=== PATIENT | female | born 1965 | race African-American/Black ===

== ENCOUNTER 2016-11-04 11:02 | Emergency (ER) | payer MEDICAID ==
[2011-06-09 13:22] VITALS: BMI 46.7
== END 2016-11-04 13:56 | disposition home or self-care (01) ==
LOC: D.ER 11:02
DX: M54.5 Low back pain (principal); F41.9 Anxiety disorder, unspecified; I25.10 Atherosclerotic heart disease of native coronary artery without angina pectoris; F32.9 Major depressive disorder, single episode, unspecified

== ENCOUNTER 2016-11-10 17:31 | Emergency (ER) | payer MEDICAID ==
[2011-06-09 13:22] VITALS: BMI 46.7
== END 2016-11-10 19:50 | disposition left against medical advice (07) ==
LOC: D.ER 17:31
DX: R52 Pain, unspecified (principal)

== ENCOUNTER 2016-11-19 16:28 | Emergency (ER) | payer MEDICAID ==
[2011-06-09 13:22] VITALS: BMI 46.7
== END 2016-11-19 18:05 | disposition home or self-care (01) ==
LOC: D.ER 16:28
DX: M54.16 Radiculopathy, lumbar region (principal); H65.02 Acute serous otitis media, left ear; F41.9 Anxiety disorder, unspecified; I25.10 Atherosclerotic heart disease of native coronary artery without angina pectoris; F32.9 Major depressive disorder, single episode, unspecified

== ENCOUNTER 2016-12-10 20:11 | Emergency (ER) | payer MEDICAID ==
[2011-06-09 13:22] VITALS: BMI 46.7
== END 2016-12-10 21:45 | disposition home or self-care (01) ==
LOC: D.ER 20:11
DX: M54.2 Cervicalgia (principal); R51 Headache; M54.5 Low back pain; F41.9 Anxiety disorder, unspecified; I25.10 Atherosclerotic heart disease of native coronary artery without angina pectoris

== ENCOUNTER 2016-12-21 16:46 | Emergency (ER) | payer MEDICAID ==
[2011-06-09 13:22] VITALS: BMI 46.7
== END 2016-12-21 18:56 | disposition home or self-care (01) ==
LOC: D.ER 16:46
DX: M54.5 Low back pain (principal); F17.200 Nicotine dependence, unspecified, uncomplicated; F41.9 Anxiety disorder, unspecified; I25.10 Atherosclerotic heart disease of native coronary artery without angina pectoris; F32.9 Major depressive disorder, single episode, unspecified

== ENCOUNTER 2017-01-01 18:17 | Emergency (ER) | payer MEDICAID ==
[2011-06-09 13:22] VITALS: BMI 46.7
== END 2017-01-01 21:35 | disposition home or self-care (01) ==
LOC: D.ER 18:17
DX: G43.909 Migraine, unspecified, not intractable, without status migrainosus (principal); F41.9 Anxiety disorder, unspecified; I25.10 Atherosclerotic heart disease of native coronary artery without angina pectoris; F32.9 Major depressive disorder, single episode, unspecified

== ENCOUNTER 2017-01-03 23:01 | Emergency (ER) | payer MEDICAID ==
[2011-06-09 13:22] VITALS: BMI 46.7
== END 2017-01-04 00:45 | disposition home or self-care (01) ==
LOC: D.ER 23:01
DX: M25.562 Pain in left knee (principal); E11.9 Type 2 diabetes mellitus without complications; I10 Essential (primary) hypertension

== ENCOUNTER 2017-01-10 11:32 | Emergency (ER) | payer MEDICAID ==
[2011-06-09 13:22] VITALS: BMI 46.7
== END 2017-01-10 12:04 | disposition home or self-care (01) ==
LOC: D.ER 11:32
DX: S16.1XXA Strain of muscle, fascia and tendon at neck level, initial encounter (principal); X58.XXXA Exposure to other specified factors, initial encounter; Y93.89 Activity, other specified; Y92.89 Other specified places as the place of occurrence of the external cause; E11.9 Type 2 diabetes mellitus without complications; I10 Essential (primary) hypertension

== ENCOUNTER 2017-01-10 23:54 | Emergency (ER) | payer MEDICAID ==
[2011-06-09 13:22] VITALS: BMI 46.7
== END 2017-01-11 01:25 | disposition home or self-care (01) ==
LOC: D.ER 23:54
DX: G43.909 Migraine, unspecified, not intractable, without status migrainosus (principal); S29.012A Strain of muscle and tendon of back wall of thorax, initial encounter; X58.XXXA Exposure to other specified factors, initial encounter; Y93.89 Activity, other specified; Y92.89 Other specified places as the place of occurrence of the external cause; E11.9 Type 2 diabetes mellitus without complications; I10 Essential (primary) hypertension

== ENCOUNTER 2017-01-13 20:34 | Emergency (ER) | payer MEDICAID ==
[2011-06-09 13:22] VITALS: BMI 46.7
== END 2017-01-14 00:11 | disposition home or self-care (01) ==
LOC: D.ER 20:34
DX: R51 Headache (principal); M79.605 Pain in left leg; I10 Essential (primary) hypertension; E11.9 Type 2 diabetes mellitus without complications

== ENCOUNTER 2017-01-18 11:27 | Emergency (ER) | payer MEDICAID ==
[2011-06-09 13:22] VITALS: BMI 46.7
== END 2017-01-18 12:53 | disposition home or self-care (01) ==
LOC: D.ER 11:27
DX: M54.5 Low back pain (principal); W01.0XXA Fall on same level from slipping, tripping and stumbling without subsequent striking against object, initial encounter; Y93.6A Activity, physical games generally associated with school recess, summer camp and children; I10 Essential (primary) hypertension

== ENCOUNTER 2017-01-19 10:51 | Emergency (ER) | payer MEDICAID ==
[2011-06-09 13:22] VITALS: BMI 46.7
== END 2017-01-19 13:41 | disposition home or self-care (01) ==
LOC: D.ER 10:51
DX: M54.5 Low back pain (principal); W19.XXXA Unspecified fall, initial encounter; I10 Essential (primary) hypertension

== ENCOUNTER 2017-01-21 18:56 | Emergency (ER) | payer MEDICAID ==
[2011-06-09 13:22] VITALS: BMI 46.7
== END 2017-01-21 22:10 | disposition home or self-care (01) ==
LOC: D.ER 18:56
DX: M53.3 Sacrococcygeal disorders, not elsewhere classified (principal); I10 Essential (primary) hypertension

== ENCOUNTER 2017-01-28 14:05 | Emergency (ER) | payer MEDICAID ==
[2011-06-09 13:22] VITALS: BMI 46.7
== END 2017-01-28 16:21 | disposition home or self-care (01) ==
LOC: D.ER 14:05
DX: G43.909 Migraine, unspecified, not intractable, without status migrainosus (principal); I10 Essential (primary) hypertension; E11.9 Type 2 diabetes mellitus without complications

== ENCOUNTER 2017-01-30 17:06 | Emergency (ER) | payer MEDICAID ==
[2011-06-09 13:22] VITALS: BMI 46.7
[2017-01-30 18:15] LABS: BASOPHILS 0.1 % (0-2); EOSINOPHILS 1.8 % (0-7); HEMATOCRIT 34.8 % (36.0-48.0); HEMOGLOBIN 11.3 g/dL (12-16); IMMATURE GRANULOCYTES 0.1 % (0-5); LYMPHOCYTES 36.2 % (15-50); MCH 29.7 pg (26.0-34.0); MCHC 32.5 g/dL (31.0-37.0); MCV 91.3 fL (80.0-100.0); MEAN PLATELET VOLUME 10.6 fL (7.4-10.4); MONOCYTES 6.5 % (2-11); NEUTROPHILS 55.3 % (40-80); PLATELET COUNT 269 10x3/uL (130-400); RBC 3.81 10x6/uL (4.00-5.40); RDW 13.3 % (11.5-14.5); WBC 7.2 10x3/uL (4.8-10.8)
== END 2017-01-30 18:51 | disposition home or self-care (01) ==
LOC: D.ER 17:06
PROVIDERS: Nurse Practitioner Acute Care
DX: G89.18 Other acute postprocedural pain (principal); R11.10 Vomiting, unspecified; I10 Essential (primary) hypertension; E11.9 Type 2 diabetes mellitus without complications; R11.2 Nausea with vomiting, unspecified; R10.9 Unspecified abdominal pain; M54.9 Dorsalgia, unspecified; M54.2 Cervicalgia

== ENCOUNTER 2017-02-03 12:41 | Emergency (ER) | payer MEDICAID ==
[2011-06-09 13:22] VITALS: BMI 46.7
== END 2017-02-03 14:23 | disposition home or self-care (01) ==
LOC: D.ER 12:41
DX: M54.5 Low back pain (principal); I10 Essential (primary) hypertension; F17.200 Nicotine dependence, unspecified, uncomplicated

== ENCOUNTER 2017-02-10 11:10 | Emergency (ER) | payer MEDICAID ==
[2011-06-09 13:22] VITALS: BMI 46.7
== END 2017-02-10 12:30 | disposition left against medical advice (07) ==
LOC: D.ER 11:10
DX: R51 Headache (principal)

== ENCOUNTER 2017-02-11 14:37 | Emergency (ER) | payer MEDICAID ==
[2011-06-09 13:22] VITALS: BMI 46.7
== END 2017-02-11 15:55 | disposition home or self-care (01) ==
LOC: D.ER 14:37
DX: G43.909 Migraine, unspecified, not intractable, without status migrainosus (principal); E11.9 Type 2 diabetes mellitus without complications; I10 Essential (primary) hypertension

== ENCOUNTER 2017-02-22 21:04 | Emergency (ER) | payer MEDICAID ==
[2011-06-09 13:22] VITALS: BMI 46.7
== END 2017-02-22 23:16 | disposition home or self-care (01) ==
LOC: D.ER 21:04
DX: M54.16 Radiculopathy, lumbar region (principal); E11.9 Type 2 diabetes mellitus without complications; I10 Essential (primary) hypertension

== ENCOUNTER 2017-02-26 17:36 | Emergency (ER) | payer MEDICAID ==
[2011-06-09 13:22] VITALS: BMI 46.7
== END 2017-02-26 18:55 | disposition home or self-care (01) ==
LOC: D.ER 17:36
DX: G43.919 Migraine, unspecified, intractable, without status migrainosus (principal); I10 Essential (primary) hypertension; E11.9 Type 2 diabetes mellitus without complications; R11.0 Nausea; H53.149 Visual discomfort, unspecified

== ENCOUNTER 2017-03-08 12:31 | Emergency (ER) | payer MEDICAID ==
[2011-06-09 13:22] VITALS: BMI 46.7
== END 2017-03-08 14:45 | disposition home or self-care (01) ==
LOC: D.ER 12:31
DX: G43.909 Migraine, unspecified, not intractable, without status migrainosus (principal); I10 Essential (primary) hypertension; F17.200 Nicotine dependence, unspecified, uncomplicated

== ENCOUNTER 2017-03-14 18:02 | Emergency (ER) | payer MEDICAID ==
[2011-06-09 13:22] VITALS: BMI 46.7
[2017-03-14 20:57] LABS: APPEARANCE CLEAR (CLEAR); BILIRUBIN NEGATIVE (NEGATIVE); COLOR YELLOW (YELLOW); GLUCOSE NEGATIVE (NEGATIVE); KETONE NEGATIVE (NEGATIVE); LEUKOCYTE ESTERASE TRACE (NEGATIVE); NITRITE NEGATIVE (NEGATIVE); PROTEIN NEGATIVE (NEGATIVE); SPECIFIC GRAVITY 1.015 (1.005-1.020); UROBILINOGEN NORMAL (NORMAL)
[2017-03-14 20:59] LABS: BASOPHILS 0.2 % (0-2); EOSINOPHILS 1.8 % (0-7); HEMATOCRIT 35.7 % (36.0-48.0); HEMOGLOBIN 11.7 g/dL (12-16); IMMATURE GRANULOCYTES 0.1 % (0-5); LYMPHOCYTES 37.3 % (15-50); MCH 29.6 pg (26.0-34.0); MCHC 32.8 g/dL (31.0-37.0); MCV 90.4 fL (80.0-100.0); MEAN PLATELET VOLUME 10.2 fL (7.4-10.4); MONOCYTES 5.7 % (2-11); NEUTROPHILS 54.9 % (40-80); PLATELET COUNT 308 10x3/uL (130-400); RBC 3.95 10x6/uL (4.00-5.40); WBC 8.9 10x3/uL (4.8-10.8)
[2017-03-14 20:59] LABS: BACTERIA MODERATE /hpf (NONE SEEN); EPITHELIAL CELLS 0-5 /hpf (0-5); RED CELLS - URINE 0-5 /hpf (0-5); WHITE CELLS - URINE 0-5 /hpf (0-5)
[2017-03-14 21:27] LABS: ALBUMIN 3.9 g/dL (3.4-5.0); ANION GAP 13.1 mmol/L (8-16); BILIRUBIN - TOTAL 0.26 mg/dL (0.2-1.3); CARBON DIOXIDE 28.2 mmol/L (21.0-32.0); POTASSIUM - SERUM 3.3 mmol/L (3.5-5.1); PROTEIN - SERUM 7.5 g/dL (6.4-8.2)
== END 2017-03-14 22:08 | disposition home or self-care (01) ==
LOC: D.ER 18:02
PROVIDERS: Emergency Medicine
DX: R10.9 Unspecified abdominal pain (principal)

== ENCOUNTER 2017-04-03 13:25 | Emergency (ER) | payer MEDICAID ==
[2011-06-09 13:22] VITALS: BMI 46.7
== END 2017-04-03 15:35 | disposition left against medical advice (07) ==
LOC: D.ER 13:25
DX: M25.552 Pain in left hip (principal)

== ENCOUNTER 2017-04-04 13:55 | Emergency (ER) | payer MEDICAID ==
[2011-06-09 13:22] VITALS: BMI 46.7
[2017-04-04 15:58] LABS: APPEARANCE CLEAR (CLEAR); BILIRUBIN NEGATIVE (NEGATIVE); COLOR YELLOW (YELLOW); GLUCOSE NEGATIVE (NEGATIVE); KETONE NEGATIVE (NEGATIVE); NITRITE NEGATIVE (NEGATIVE); PROTEIN NEGATIVE (NEGATIVE); UROBILINOGEN NORMAL (NORMAL)
[2017-04-04 16:09] LABS: BASOPHILS 0.3 % (0-2); EOSINOPHILS 1.4 % (0-7); HEMATOCRIT 37.1 % (36.0-48.0); HEMOGLOBIN 12.1 g/dL (12-16); IMMATURE GRANULOCYTES 0.2 % (0-5); LYMPHOCYTES 48.7 % (15-50); MCH 29.3 pg (26.0-34.0); MCHC 32.6 g/dL (31.0-37.0); MCV 89.8 fL (80.0-100.0); MEAN PLATELET VOLUME 10.5 fL (7.4-10.4); MONOCYTES 7.2 % (2-11); NEUTROPHILS 42.2 % (40-80); PLATELET COUNT 251 10x3/uL (130-400); RBC 4.13 10x6/uL (4.00-5.40); RDW 12.9 % (11.5-14.5); WBC 5.8 10x3/uL (4.8-10.8)
[2017-04-04 16:11] LABS: ALKALINE PHOSPHATASE 92 U/L (46-116); ALT (SGPT) 33 U/L (10-68); AMYLASE - SERUM 49 U/L (25-115); CALC OSMOLALITY 279 mosm/kg (275-300); CALCIUM 9.5 mg/dL (8.5-10.1); CARBON DIOXIDE 27.6 mmol/L (21.0-32.0); CHLORIDE - SERUM 103 mmol/L (98-107); CREATININE - SERUM 0.8 mg/dL (0.6-1.3); LIPASE 176 U/L (73-393); POTASSIUM - SERUM 3.7 mmol/L (3.5-5.1); PROTEIN - SERUM 7.8 g/dL (6.4-8.2); SODIUM 138 mmol/L (136-145); UREA NITROGEN 11 mg/dL (7-18); eGFR NON AFRICAN AMERICAN 80 mL/min (90-120)
[2017-04-04 16:14] LABS: GLUCOSE 189 mg/dL (74-106)
== END 2017-04-04 16:40 | disposition home or self-care (01) ==
LOC: D.ER 13:55
PROVIDERS: Physician Assistant Medical
DX: M54.5 Low back pain (principal); I10 Essential (primary) hypertension

== ENCOUNTER → 2017-05-04 22:45 | Emergency (ER) | payer MEDICAID ==
[2011-06-09 13:22] VITALS: BMI 46.7
== END | disposition home or self-care (01) ==
LOC: D.ER 22:45
DX: M25.562 Pain in left knee (principal); R51 Headache; M54.9 Dorsalgia, unspecified; I10 Essential (primary) hypertension

== ENCOUNTER 2017-05-15 18:20 | Emergency (ER) | payer MEDICAID ==
[2011-06-09 13:22] VITALS: BMI 46.7
== END 2017-05-15 21:20 | disposition home or self-care (01) ==
LOC: D.ER 18:20
DX: M54.16 Radiculopathy, lumbar region (principal); I10 Essential (primary) hypertension

== ENCOUNTER 2017-05-27 20:21 | Emergency (ER) | payer MEDICAID ==
[2011-06-09 13:22] VITALS: BMI 46.7
== END 2017-05-27 22:19 | disposition home or self-care (01) ==
LOC: D.ER 20:21
DX: M25.552 Pain in left hip (principal); R51 Headache; I10 Essential (primary) hypertension

== ENCOUNTER 2017-06-16 19:54 | Emergency (ER) | payer MEDICAID ==
[2011-06-09 13:22] VITALS: BMI 46.7
== END 2017-06-16 21:20 | disposition home or self-care (01) ==
LOC: D.ER 19:54
DX: F41.9 Anxiety disorder, unspecified (principal); M25.551 Pain in right hip; R51 Headache; I10 Essential (primary) hypertension

== ENCOUNTER 2017-07-03 19:22 | Emergency (ER) | payer MEDICAID ==
[2011-06-09 13:22] VITALS: BMI 46.7
== END 2017-07-03 20:34 | disposition home or self-care (01) ==
LOC: D.ER 19:22
DX: G43.909 Migraine, unspecified, not intractable, without status migrainosus (principal); I10 Essential (primary) hypertension; E11.9 Type 2 diabetes mellitus without complications

== ENCOUNTER 2017-07-23 18:59 | Emergency (ER) | payer MEDICAID ==
[2011-06-09 13:22] VITALS: BMI 46.7
== END 2017-07-23 20:56 | disposition home or self-care (01) ==
LOC: D.ER 18:59
DX: M54.9 Dorsalgia, unspecified (principal); M54.2 Cervicalgia; I10 Essential (primary) hypertension

== ENCOUNTER 2017-08-14 18:54 | Emergency (ER) | payer MEDICAID ==
[2011-06-09 13:22] VITALS: BMI 46.7
== END 2017-08-14 21:22 | disposition home or self-care (01) ==
LOC: D.ER 18:54
DX: M25.562 Pain in left knee (principal); G43.909 Migraine, unspecified, not intractable, without status migrainosus; I10 Essential (primary) hypertension; E11.9 Type 2 diabetes mellitus without complications

== ENCOUNTER 2017-09-11 10:27 | Emergency (ER) | payer MEDICAID ==
[2011-06-09 13:22] VITALS: BMI 46.7
== END 2017-09-11 12:33 | disposition left against medical advice (07) ==
LOC: D.ER 10:27
DX: R51 Headache (principal)

== ENCOUNTER 2017-09-14 15:48 | Emergency (ER) | payer MEDICAID ==
[2011-06-09 13:22] VITALS: BMI 46.7
== END 2017-09-14 19:58 | disposition home or self-care (01) ==
LOC: D.ER 15:48
DX: G43.909 Migraine, unspecified, not intractable, without status migrainosus (principal); I10 Essential (primary) hypertension; E11.9 Type 2 diabetes mellitus without complications

== ENCOUNTER 2017-10-22 09:20 | Emergency (ER) | payer MEDICAID ==
[2011-06-09 13:22] VITALS: BMI 46.7
== END 2017-10-22 10:22 | disposition home or self-care (01) ==
LOC: D.ER 09:20
DX: G43.909 Migraine, unspecified, not intractable, without status migrainosus (principal); F17.200 Nicotine dependence, unspecified, uncomplicated

== ENCOUNTER 2017-11-02 18:52 | Emergency (ER) | payer MEDICAID ==
[2011-06-09 13:22] VITALS: BMI 46.7
== END 2017-11-02 20:44 | disposition home or self-care (01) ==
LOC: D.ER 18:52
DX: J06.9 Acute upper respiratory infection, unspecified (principal); J20.9 Acute bronchitis, unspecified; W07.XXXA Fall from chair, initial encounter; Y93.89 Activity, other specified; Y92.019 Unspecified place in single-family (private) house as the place of occurrence of the external cause

== ENCOUNTER 2017-11-18 19:11 | Emergency (ER) | payer MEDICAID ==
[2011-06-09 13:22] VITALS: BMI 46.7
== END 2017-11-18 21:14 | disposition home or self-care (01) ==
LOC: D.ER 19:11
DX: J01.90 Acute sinusitis, unspecified (principal); G43.909 Migraine, unspecified, not intractable, without status migrainosus

== ENCOUNTER 2017-12-15 00:49 | Emergency (ER) | payer MEDICAID ==
[~2017-12-15] VITALS: Ht 162.6 cm; Wt 117.9 kg
[2017-12-15 01:09] VITALS: Ht 162.6 cm; Wt 117.9 kg
[2017-12-15] MEDS ORDERED: AUGMENTIN 875-11 TAB PO (01:42)
[2017-12-15 02:09] VITALS: BP 150/86
== END 2017-12-15 02:06 | disposition home or self-care (01) ==
LOC: D.ER 00:49
DX: H66.91 Otitis media, unspecified, right ear (principal); H92.01 Otalgia, right ear; E11.9 Type 2 diabetes mellitus without complications

== ENCOUNTER 2018-01-02 18:27 | Emergency (ER) | payer MEDICAID ==
[~2018-01-02] VITALS: Ht 162.6 cm; Wt 126.8 kg
[~2018-01-02 18:27] MED LIST: AUGMENTIN 875-11 TAB PO
[2018-01-02 19:21] VITALS: Ht 162.6 cm; Wt 126.8 kg
[2018-01-02] MEDS ORDERED: ZESTRIL40 MG PO (19:26)
[2018-01-02] MEDS ORDERED: GLUCOPHAGE1000 MG PO (19:26)
[2018-01-02] MEDS ORDERED: LIPITOR40 MG PO (19:26)
[2018-01-02] MEDS ORDERED: BAYER CHEWABLE81 MG PO (19:27)
[2018-01-03] MEDS ORDERED: TORADOL10 MG PO (03:22)
[2018-01-03 03:35] VITALS: BP 123/64
== END 2018-01-03 03:38 | disposition home or self-care (01) ==
LOC: D.ER 18:27
DX: H92.01 Otalgia, right ear (principal); M26.609 Unspecified temporomandibular joint disorder, unspecified side; R51 Headache; E11.9 Type 2 diabetes mellitus without complications; F17.200 Nicotine dependence, unspecified, uncomplicated

== ENCOUNTER 2018-01-29 18:31 | Emergency (ER) | payer MEDICAID ==
[~2018-01-29] VITALS: Ht 162.6 cm; Wt 130.9 kg
[~2018-01-29 18:31] MED LIST changes: +BAYER CHEWABLE81 MG PO; +GLUCOPHAGE1000 MG PO; +LIPITOR40 MG PO; +TORADOL10 MG PO; +ZESTRIL40 MG PO
[2018-01-29 18:45] VITALS: Ht 162.6 cm; Wt 130.9 kg
[2018-01-29 19:53] VITALS: BP 188/102
== END 2018-01-29 19:53 | disposition home or self-care (01) ==
LOC: D.ER 18:31
DX: G43.909 Migraine, unspecified, not intractable, without status migrainosus (principal); R44.0 Auditory hallucinations; I10 Essential (primary) hypertension; F17.200 Nicotine dependence, unspecified, uncomplicated

== ENCOUNTER 2018-02-07 20:00 | Emergency (ER) | payer MEDICAID ==
[~2018-02-07] VITALS: Ht 162.6 cm; Wt 129.5 kg
[2018-02-07 20:08] VITALS: Ht 162.6 cm; Wt 129.5 kg
[2018-02-07] MEDS ORDERED: NEURONTIN 300300 MG PO (21:25)
[2018-02-07 22:14] VITALS: BP 156/108
== END 2018-02-07 22:09 | disposition home or self-care (01) ==
LOC: D.ER 20:00
DX: M54.16 Radiculopathy, lumbar region (principal); M54.31 Sciatica, right side; E11.9 Type 2 diabetes mellitus without complications; I10 Essential (primary) hypertension; F17.200 Nicotine dependence, unspecified, uncomplicated

== ENCOUNTER 2018-02-25 08:53 | Emergency (ER) | payer MEDICAID ==
[~2018-02-25] VITALS: Ht 162.6 cm; Wt 115.0 kg
[~2018-02-25 08:53] MED LIST changes: +NEURONTIN 300300 MG PO
[2018-02-25 09:12] VITALS: Ht 162.6 cm; Wt 115.0 kg
[2018-02-25] MEDS ORDERED: HYDROCODON-ACE1 EAC7 PO (09:29)
[2018-02-25] MEDS ORDERED: ANAPROX DS550 MG PO (09:36)
[2018-02-25 09:48] VITALS: BP 132/81
== END 2018-02-25 09:49 | disposition home or self-care (01) ==
LOC: D.ER 08:53
DX: M48.32 Traumatic spondylopathy, cervical region (principal); M48.36 Traumatic spondylopathy, lumbar region; M54.30 Sciatica, unspecified side; I10 Essential (primary) hypertension; F17.200 Nicotine dependence, unspecified, uncomplicated

== ENCOUNTER 2018-03-02 11:39 | Emergency (ER) | payer MEDICAID ==
[~2018-03-02] VITALS: Ht 162.6 cm; Wt 112.7 kg
[~2018-03-02 11:39] MED LIST changes: +ANAPROX DS550 MG PO; +HYDROCODON-ACE1 EAC7 PO
[2018-03-02 11:41] VITALS: Ht 162.6 cm; Wt 112.7 kg
[2018-03-02] MEDS ORDERED: TORADOL10 MG PO (14:31)
[2018-03-02 15:17] VITALS: BP 130/88
== END 2018-03-02 15:18 | disposition home or self-care (01) ==
LOC: D.ER 11:39
DX: M54.16 Radiculopathy, lumbar region (principal); M25.562 Pain in left knee; E11.9 Type 2 diabetes mellitus without complications; I10 Essential (primary) hypertension

== ENCOUNTER 2018-03-24 16:56 | Emergency (ER) | payer MEDICAID ==
[~2018-03-24] VITALS: Ht 162.6 cm; Wt 117.3 kg
[2018-03-24 17:13] VITALS: BP 158/99; Ht 162.6 cm; Wt 117.3 kg
[2018-03-24] MEDS ORDERED: EC-NAPROSYN500 MG PO (19:07)
== END 2018-03-24 19:18 | disposition home or self-care (01) ==
LOC: D.ER 16:56
DX: R51 Headache (principal); M16.11 Unilateral primary osteoarthritis, right hip; E11.9 Type 2 diabetes mellitus without complications; I10 Essential (primary) hypertension

== ENCOUNTER 2018-04-04 14:39 | Emergency (ER) | payer MEDICAID ==
[~2018-04-04] VITALS: Ht 162.6 cm; Wt 116.8 kg
[~2018-04-04 14:39] MED LIST changes: +EC-NAPROSYN500 MG PO
[2018-04-04 15:08] VITALS: Ht 162.6 cm; Wt 116.8 kg
[2018-04-04] MEDS ORDERED: NAPROSYN500 MG PO (16:34)
[2018-04-04] MEDS ORDERED: COMPAZINE5 MG PO (16:34)
[2018-04-04 17:28] VITALS: BP 147/97
== END 2018-04-04 17:14 | disposition home or self-care (01) ==
LOC: D.ER 14:39
DX: G43.909 Migraine, unspecified, not intractable, without status migrainosus (principal); E11.9 Type 2 diabetes mellitus without complications; I10 Essential (primary) hypertension; Z86.59 Personal history of other mental and behavioral disorders; F17.200 Nicotine dependence, unspecified, uncomplicated

== ENCOUNTER 2018-04-20 19:50 | Emergency (ER) | payer MEDICAID ==
[~2018-04-20] VITALS: Ht 162.6 cm; Wt 116.8 kg
[~2018-04-20 19:50] MED LIST changes: +COMPAZINE5 MG PO; +NAPROSYN500 MG PO
[2018-04-20 19:58] VITALS: Ht 162.6 cm; Wt 116.8 kg
[2018-04-20 20:22] LABS: APPEARANCE CLEAR (CLEAR); BILIRUBIN NEGATIVE (NEGATIVE); COLOR YELLOW (YELLOW); GLUCOSE 1000 mg/dL (NEGATIVE); KETONE NEGATIVE (NEGATIVE); NITRITE NEGATIVE (NEGATIVE); PROTEIN NEGATIVE (NEGATIVE); UROBILINOGEN NORMAL (NORMAL)
[2018-04-20 20:30] LABS: UDS - AMPHET NEGATIVE QUAL (NEGATIVE); UDS - BARB NEGATIVE QUAL (NEGATIVE); UDS - BENZO NEGATIVE QUAL (NEGATIVE); UDS - COCAINE NEGATIVE QUAL (NEGATIVE); UDS - OPIATE POSITIVE QUAL (NEGATIVE); UDS - PCP NEGATIVE QUAL (NEGATIVE); UDS - THC POSITIVE QUAL (NEGATIVE)
[2018-04-20 20:44] LABS: BASOPHILS 0.1 % (0-2); EOSINOPHILS 2.1 % (0-7); HEMATOCRIT 37.3 % (36.0-48.0); HEMOGLOBIN 12.2 g/dL (12-16); IMMATURE GRANULOCYTES 0.1 % (0-5); LYMPHOCYTES 47.6 % (15-50); MCHC 32.7 g/dL (31.0-37.0); MCV 91.6 fL (80.0-100.0); MEAN PLATELET VOLUME 10.6 fL (7.4-10.4); MONOCYTES 5.8 % (2-11); NEUTROPHILS 44.3 % (40-80); PLATELET COUNT 277 10x3/uL (130-400); RBC 4.07 10x6/uL (4.00-5.40); RDW 12.6 % (11.5-14.5); WBC 6.8 10x3/uL (4.8-10.8)
[2018-04-20 21:03] LABS: ACETAMINOPHEN 6.3 ug/mL (10.0-30.0); ALBUMIN 3.7 g/dL (3.4-5.0); ANION GAP 12.8 mmol/L (8-16); BILIRUBIN - TOTAL 0.11 mg/dL (0.2-1.3); CALCIUM 9.2 mg/dL (8.5-10.1); CARBON DIOXIDE 27.9 mmol/L (21.0-32.0); CREATININE - SERUM 0.9 mg/dL (0.6-1.3); MAGNESIUM - SERUM 1.9 mg/dL (1.8-2.4); POTASSIUM - SERUM 3.7 mmol/L (3.5-5.1); PROTEIN - SERUM 7.4 g/dL (6.4-8.2)
[2018-04-21 00:29] VITALS: BP 135/85
== END 2018-04-21 00:15 | disposition home or self-care (01) ==
LOC: D.ER 19:50
PROVIDERS: Family Medicine
DX: G43.909 Migraine, unspecified, not intractable, without status migrainosus (principal); R44.0 Auditory hallucinations; E11.65 Type 2 diabetes mellitus with hyperglycemia; F12.90 Cannabis use, unspecified, uncomplicated; I10 Essential (primary) hypertension; I25.10 Atherosclerotic heart disease of native coronary artery without angina pectoris; I73.9 Peripheral vascular disease, unspecified; F17.200 Nicotine dependence, unspecified, uncomplicated

== ENCOUNTER 2018-05-16 21:07 | Emergency (ER) | payer MEDICAID ==
[~2018-05-16] VITALS: Ht 162.6 cm; Wt 115.9 kg
[2018-05-16 21:17] VITALS: Ht 162.6 cm; Wt 115.9 kg
[2018-05-16 22:53] VITALS: BP 177/96
== END 2018-05-16 22:57 | disposition home or self-care (01) ==
LOC: D.ER 21:07
DX: G43.909 Migraine, unspecified, not intractable, without status migrainosus (principal); E11.9 Type 2 diabetes mellitus without complications; I10 Essential (primary) hypertension; I25.10 Atherosclerotic heart disease of native coronary artery without angina pectoris; I73.9 Peripheral vascular disease, unspecified; F17.200 Nicotine dependence, unspecified, uncomplicated

== ENCOUNTER 2018-05-19 14:02 | Emergency (ER) | payer MEDICAID ==
[~2018-05-19] VITALS: Ht 162.6 cm; Wt 116.8 kg
[2018-05-19 14:08] VITALS: Ht 162.6 cm; Wt 116.8 kg
[2018-05-19 21:56] VITALS: BP 137/64
== END 2018-05-19 16:40 | disposition home or self-care (01) ==
LOC: D.ER 14:02
DX: G43.909 Migraine, unspecified, not intractable, without status migrainosus (principal); E11.9 Type 2 diabetes mellitus without complications; I10 Essential (primary) hypertension; I25.10 Atherosclerotic heart disease of native coronary artery without angina pectoris; I73.9 Peripheral vascular disease, unspecified

== ENCOUNTER 2018-07-29 16:26 | Emergency (ER) | payer MEDICAID ==
[2018-07-29 16:41] VITALS: Ht 162.6 cm
[2018-07-29] MEDS ORDERED: VIBRAMYCIN 100100 MG PO (17:43)
[2018-07-29] MEDS ORDERED: PHENERGAN DM SYR5 ML PO (17:43)
[2018-07-29 18:22] VITALS: BP 152/99
== END 2018-07-29 18:22 | disposition home or self-care (01) ==
LOC: D.ER 16:26
DX: J06.9 Acute upper respiratory infection, unspecified (principal); R51 Headache; R09.89 Other specified symptoms and signs involving the circulatory and respiratory systems

== ENCOUNTER 2018-09-20 16:25 | Emergency (ER) | payer MEDICAID ==
[~2018-09-20] VITALS: Ht 162.6 cm; Wt 116.8 kg
[~2018-09-20 16:25] MED LIST changes: +PHENERGAN DM SYR5 ML PO; +VIBRAMYCIN 100100 MG PO
[2018-09-20 17:26] VITALS: Ht 162.6 cm; Wt 116.8 kg
[2018-09-20] MEDS ORDERED: GLUCOPHAGE1000 MG PO (18:03)
[2018-09-20] MEDS ORDERED: ZESTRIL40 MG PO (18:03)
[2018-09-20] MEDS ORDERED: LIPITOR40 MG PO (18:03)
[2018-09-20 19:14] VITALS: BP 161/84
== END 2018-09-20 19:14 | disposition home or self-care (01) ==
LOC: D.ER 16:25
DX: R51 Headache (principal); Z76.0 Encounter for issue of repeat prescription

== ENCOUNTER 2018-12-27 21:09 | Emergency (ER) | payer MEDICAID ==
[~2018-12-27] VITALS: Ht 162.6 cm; Wt 121.4 kg
[2018-12-27 21:21] VITALS: Ht 162.6 cm; Wt 121.4 kg
[2018-12-27] MEDS ORDERED: LISINOPRIL40 MG PO (21:42)
[2018-12-27 23:05] VITALS: BP 142/83
== END 2018-12-27 23:06 | disposition home or self-care (01) ==
LOC: D.ER 21:09
DX: G43.909 Migraine, unspecified, not intractable, without status migrainosus (principal); Z91.14 Patient's other noncompliance with medication regimen

== ENCOUNTER 2019-02-06 10:33 | Emergency (ER) | payer MEDICAID ==
[~2019-02-06] VITALS: Ht 162.6 cm; Wt 121.4 kg
[~2019-02-06 10:33] MED LIST changes: +LISINOPRIL40 MG PO
[2019-02-06 10:56] VITALS: Ht 162.6 cm; Wt 121.4 kg
[2019-02-06] MEDS ORDERED: LISINOPRIL40 MG PO (12:23)
[2019-02-06 13:18] VITALS: BP 145/93
== END 2019-02-06 13:14 | disposition home or self-care (01) ==
LOC: D.ER 10:33
DX: R51 Headache (principal); Z76.0 Encounter for issue of repeat prescription

== ENCOUNTER 2019-04-15 10:13 | Emergency (ER) | payer MEDICAID ==
[~2019-04-15] VITALS: Ht 165.1 cm; Wt 121.4 kg
[2019-04-15 10:17] VITALS: Ht 165.1 cm; Wt 121.4 kg
[2019-04-15] MEDS ORDERED: GLUCOPHAGE1000 MG PO (12:08)
[2019-04-15] MEDS ORDERED: OMEPRAZOLE40 MG PO (12:08)
[2019-04-15] MEDS ORDERED: LISINOPRIL40 MG PO (12:08)
[2019-04-15 12:47] VITALS: BP 174/78
== END 2019-04-15 12:47 | disposition home or self-care (01) ==
LOC: D.ER 10:13
DX: G43.909 Migraine, unspecified, not intractable, without status migrainosus (principal); E11.9 Type 2 diabetes mellitus without complications; I10 Essential (primary) hypertension

== ENCOUNTER 2019-05-26 16:32 | Emergency (ER) | payer MEDICAID ==
[~2019-05-26] VITALS: Ht 165.1 cm; Wt 121.8 kg
[~2019-05-26 16:32] MED LIST changes: +OMEPRAZOLE40 MG PO
[2019-05-26 16:35] VITALS: Ht 165.1 cm; Wt 121.8 kg
[2019-05-26] MEDS ORDERED: LISINOPRIL40 MG PO (19:04)
[2019-05-26] MEDS ORDERED: VISTARIL25 MG PO (19:04)
[2019-05-26 19:16] VITALS: BP 164/91
== END 2019-05-26 19:16 | disposition home or self-care (01) ==
LOC: D.ER 16:32
DX: G43.909 Migraine, unspecified, not intractable, without status migrainosus (principal); F41.9 Anxiety disorder, unspecified; G47.00 Insomnia, unspecified; E11.8 Type 2 diabetes mellitus with unspecified complications; Z79.84 Long term (current) use of oral hypoglycemic drugs; I10 Essential (primary) hypertension